=== PATIENT | male | born 1950 | race Caucasian/White ===

== ENCOUNTER 2017-02-02 10:25 | Emergency (ER) | payer BC ==
[2017-02-02 10:39] VITALS: BP 158/89
--- NOTE | 2017-02-02 11:04 | UC ---
Cardiac HPI - HPI Summary HPI Summary: bilateral distal arms numbness x 5 days radiates to his upper arm , lasts for few second and goes away he also gets bilateral chest tightness and pressure, no fever, no chills, no cough, no sob, no diaphoresis - History of Current Complaint Chief Complaint: UCChestPain Stated Complaint: CHEST PAINS/LEFT ARM NUMBNESS Time Seen by Provider: 02/02/17 10:31 Hx Obtained From: Patient Onset/Duration: Gradual Onset Timing: Constant Initial Severity: Moderate Current Severity: Moderate Character: Tightness Aggravating: Nothing Alleviating: Spontaneous Resolution Associated Signs & Symptoms: Negative: Chest Pain, Anxiety, Recent Stress, Headaches, Numbness, Tingling, Weakness, Dizziness, SOB, Swelling, Syncope, Fever, Diaphoresis, Nausea/Vomiting, Palpitations, Cough, Hemoptysis, Back Pain , Abdominal Pain, Calf Pain/Swelling - Allergy/Home Medications Allergies/Adverse Reactions: Allergies Allergy/AdvReac Type Severity Reaction Status Date / Time Diphenhydramine Allergy Intermediate pvc s , Verified 02/02/17 10:39 [From Benadryl] "pounding heart" Lidocaine Allergy Intermediate GI Upset Verified 02/02/17 10:39 Home Medications: Home Medications Cyanocobalamin [Vitamin B 12] 100 mcg PO DAILY 02/02/17 [History Confirmed 02/02] PMH/Surg Hx/FS Hx/Imm Hx Cardiovascular History: Hypertension Other History Of: Negative For: HIV, Hepatitis B, Hepatitis C - Surgical History Surgical History: Yes Surgery Procedure, Year, and Place: carpal tunnel b/l - Family History Known Family History: Positive: Cardiac Disease, Diabetes - Social History Alcohol Use: None Substance Use Type: None Smoking Status (MU): Never Smoked Tobacco - Immunization History Most Recent Tetanus Shot: 2011 Review of Systems Constitutional: Negative Skin: Negative Eyes: Negative ENT: Negative Respiratory: Negative Cardiovascular: Negative All Other Systems Reviewed And Are Negative: Yes Physical Exam Triage Information Reviewed: Yes Appearance: Well-Appearing, No Pain Distress, Well-Nourished Vital Signs: Initial Vital Signs Temp 98.6 F 02/02/17 10:35 Pulse 83 02/02/17 10:35 Resp 18 02/02/17 10:35 BP 158/89 02/02/17 10:35 Pulse Ox 99 02/02/17 10:35 Vital Signs Reviewed: Yes Eyes: Positive: Conjunctiva Clear ENT: Positive: Normal ENT inspection, Hearing grossly normal, Pharynx normal Neck: Positive: Supple, Nontender, No Lymphadenopathy Respiratory: Positive: Chest non-tender, Lungs clear, Normal breath sounds Cardiovascular: Positive: RRR, No Murmur, Pulses Normal Abdominal Exam: Normal Abdomen Description: Positive: Nontender, Soft. Negative: CVA Tenderness (R), CVA Tenderness (L), Distended, Guarding Bowel Sounds: Positive: Present Musculoskeletal Exam: Normal Musculoskeletal: Positive: Strength Intact, ROM Intact, No Edema Neurological: Positive: Alert Skin Exam: Normal - Clinical Impression Provider Diagnoses: chest tightness. parysthesia Discharge - Discharge Plan Condition: Stable Disposition: HOME Patient Education Materials: Paresthesia (ED) Referrals: Gonzalo Gordon MD [Primary Care Provider] - 7 Days
[2017-02-02 14:13] LABS: Hematocrit 47 % (42-52); Hemoglobin 15.4 g/dl (14.0-18.0); Mean Corpuscular HGB Conc 33 g/dl (31-36); Mean Corpuscular Hemoglobin 29 pg (27-31); Mean Corpuscular Volume 86 fL (80-94); Mean Platelet Volume 9 um3 (7.4-10.4); Red Blood Count 5.42 10^6/ul (4.0-5.4); Red Cell Distribution Width 14 % (10.5-15); White Blood Count 4.1 10^3/ul (3.5-10.8)
[2017-02-02 14:24] LABS: Albumin 4.3 g/dL (3.2-5.2); BUN/Creatinine Ratio 26.2 (8-20); Calcium 9.3 mg/dL (8.6-10.3); EGFR African American 159.1 (>60); EGFR Non-African American 123.7 (>60); Globulin 2.2 g/dL (2-4); Potassium 4.2 mmol/L (3.5-5.0); Total Bilirubin 0.4 mg/dL (0.2-1.0); Total Protein 6.5 g/dL (6.4-8.9)
[2017-02-02 14:35] LABS: TSH (Thyroid Stimulating Horm) 1.66 mcIU/mL (0.34-5.60)
[2017-02-02 14:40] LABS: Free T3 3.6 pg/mL (2.5-3.9)
[2017-02-02 14:41] LABS: Free T4 0.82 ng/dL (0.61-1.12)
== END 2017-02-02 11:21 | disposition home or self-care (01) ==
LOC: UCCORT 10:25
DX: R07.89 Other chest pain (principal); R20.2 Paresthesia of skin; I10 Essential (primary) hypertension; Z88.4 Allergy status to anesthetic agent; Z88.8 Allergy status to other drugs, medicaments and biological substances
CPT/HCPCS: 36415; 80053; 84439; 84443; 84481; 84482; 85025; 93005; 99211; G0463